=== PATIENT | male | born 1975 ===

== ENCOUNTER 2018-12-02 15:37 | Emergency (ER) | payer OTHER ==
[~2018-12-02] VITALS: Ht 172.7 cm; Wt 81.6 kg
[~2018-12-02 15:37] MED LIST: TUSSI PRES-B L120 M1 PO; ZITHROMAX TRI-500 MG PO
== END 2018-12-02 19:28 | disposition home or self-care (01) ==
LOC: ER 15:37
DX: J31.2 Chronic pharyngitis (principal)

== ENCOUNTER 2020-05-12 17:25 | Emergency (ER) | payer OTHER ==
[~2020-05-12] VITALS: Ht 172.7 cm; Wt 79.4 kg
[2020-05-13] MEDS ORDERED: PEPCID AC20 MG PO (06:29)
[2020-05-13] MEDS ORDERED: PERCOCET 5-3251 EACH PO (06:29)
[2020-05-13] MEDS ORDERED: INTESTINEX680 M1 PO (06:29)
== END 2020-05-12 19:40 | disposition home or self-care (01) ==
LOC: ER 17:25
DX: K04.7 Periapical abscess without sinus (principal)

== ENCOUNTER → 2020-05-13 | Emergency (ER) | payer OTHER ==
[~2020-05-13] VITALS: Ht 172.7 cm; Wt 79.4 kg
[~2020-05-13] MED LIST changes: +INTESTINEX680 M1 PO; +PEPCID AC20 MG PO; +PERCOCET 5-3251 EACH PO
== END | disposition left against medical advice (07) ==
LOC: ER 05:46
DX: Z53.20 Procedure and treatment not carried out because of patient's decision for unspecified reasons (principal)